=== PATIENT | female | born 1965 | race Caucasian/White ===

== ENCOUNTER 2017-02-17 16:53 | Emergency (ER) | payer OTHER ==
[~2017-02-17] VITALS: Ht 139.7 cm; Wt 65.9 kg
[2017-02-17] MEDS ORDERED: GLYB5 PO (17:46)
[2017-02-17] MEDS ORDERED: METF500T4 PO (17:46)
[2017-02-17 17:47] LABS: GLUCOSE,POINT OF CARE 171 MG/DL (70-110)
[2017-02-17 19:00] VITALS: BP 148/87
[2017-02-17] MEDS ORDERED: HYDROCODONE/ACETAMINOPHEN 5-325 MG TABLET PO ONE (19:00)
[2017-02-17] MEDS ORDERED: CefTRIAXone SODIUM 1 GM/VIAL IM ONE (19:00)
[2017-02-17] MEDS ORDERED: LIDOCAINE HCL/PF 1% 2 ML VIAL IM ONE (19:00)
== END 2017-02-17 19:06 | disposition home or self-care (01) ==
LOC: EMS 16:55
DX: L03.311 Cellulitis of abdominal wall (principal); L02.211 Cutaneous abscess of abdominal wall; E11.9 Type 2 diabetes mellitus without complications; I10 Essential (primary) hypertension
CPT/HCPCS: 82962; 96372; 99283; J0696; J3490

== ENCOUNTER 2020-10-05 01:03 | Emergency (ER) | payer OTHER ==
[~2020-10-05] VITALS: Ht 139.7 cm; Wt 6.5 kg
[~2020-10-05 01:03] MED LIST: GLYB5TAB10 PO; METF-960 PO
[2020-10-05] MEDS ORDERED: DiphenhydrAMINE HCL 25 MG CAPSULE PO ONE (02:15)
[2020-10-05] MEDS ORDERED: DiphenhydrAMINE HCL 50 MG/ML VIAL IM ONE (02:30)
[2020-10-05] MEDS ORDERED: FAMOTIDINE 20 MG TABLET PO ONE (02:30)
[2020-10-05] MEDS ORDERED: EPINEPHrine 1:1,000 [1 MG/ML] AMP IM ONE (02:30)
[2020-10-05 04:41] LABS: GLUCOSE,POINT OF CARE 331 MG/DL (70-110)
[2020-10-05 05:15] VITALS: BP 122/74
== END 2020-10-05 05:20 | disposition home or self-care (01) ==
LOC: EMS 01:03
DX: L50.9 Urticaria, unspecified (principal); I25.10 Atherosclerotic heart disease of native coronary artery without angina pectoris; E11.9 Type 2 diabetes mellitus without complications; I10 Essential (primary) hypertension; Z79.84 Long term (current) use of oral hypoglycemic drugs
CPT/HCPCS: 82962; 96372; 99284; J0171; J1200; 82948

== ENCOUNTER 2022-09-11 09:03 | Inpatient (IN) | payer OTHER ==
[~2022-09-11] VITALS: Ht 139.7 cm; Wt 59.1 kg
[~2022-09-11 09:03] MED LIST changes: +GLYB-145 PO; -GLYB5TAB10 PO; +METF-1211 PO; -METF-960 PO
[2022-09-11 10:18] LABS: BASOPHILS % (AUTO) 1.1 % (0.0-2.0); EOSINOPHILS % (AUTO) 2.4 % (1.0-6.0); HEMOGLOBIN 11.3 g/dL (12.0-16.0); LYMPHOCYTES % (AUTO) 17.5 % (22.0-44.0); MEAN CORPUSCULAR HEMOGLOBIN 29.6 pg (26.0-34.0); MEAN CORPUSCULAR HGB CONC 34.2 G/dL (31.0-37.0); MEAN CORPUSCULAR VOLUME 87 fL (80-100); MONOCYTES # (AUTO) 1.2 K/uL (0.1-1.0); MONOCYTES % (AUTO) 10.4 % (2.0-9.0); NEUTROPHILS # (AUTO) 7.8 K/uL (1.8-7.7); NEUTROPHILS % (AUTO) 68.6 % (40.0-70.0); PLATELET COUNT (AUTO) 398 K/uL (150-450); RED BLOOD CELL COUNT(AUTO) 3.81 MIL/uL (4.00-5.20); RED CELL DISTRIBUTION WIDTH 12.5 % (11.5-14.5)
[2022-09-11 10:31] LABS: CALCIUM, TOTAL 9.4 mg/dL (8.8-10.5); CREATININE 1.79 mg/dL (0.60-1.30); POTASSIUM 4.6 mmol/L (3.5-5.1)
[2022-09-11 10:36] LABS: ALBUMIN 2.9 g/dL (3.4-5.0); BILIRUBIN,TOTAL 0.4 mg/dL (0.1-1.0); TOTAL PROTEIN, SERUM 7.4 g/dL (6.4-8.2)
[2022-09-11] MEDS ORDERED: DEXTROSE 50%-WATER 25 GM/50 ML SYRINGE IVP PRN (16:15)
[2022-09-11] MEDS ORDERED: MORPHINE SULFATE 2 MG/ML SYRINGE IVP PRN (16:15)
[2022-09-11] MEDS ORDERED: SODIUM CHLORIDE 0.9% 1,000 ML IV ONE (16:15)
[2022-09-11] MEDS ORDERED: ONDANSETRON HCL 4 MG/2 ML VIAL IVP PRN (16:15)
[2022-09-11] MEDS ORDERED: ZOLPIDEM TARTRATE 5 MG TABLET PO PRN (16:15)
[2022-09-11 16:32] LABS: COVID AG,FIA SOURCE NASAL SWAB
[2022-09-11] MEDS ORDERED: LISI-894 PO (16:36)
[2022-09-11] MEDS ORDERED: CARV6 PO (16:36)
[2022-09-11] MEDS ORDERED: FURO20 PO (16:36)
[2022-09-11] MEDS ORDERED: GLYB5TAB9 PO (16:36)
[2022-09-11 17:00] VITALS: BP 108/82
[2022-09-11] MEDS: OxyCODONE HCL/ACETAMINOPHEN 5-325 MG TABLET PO PRN (17:17)
[2022-09-11 17:40] LABS: APPEARANCE,URINE TURBID (CLEAR); BILIRUBIN,URINE NEGATIVE (NEGATIVE); GLUCOSE, URINE (UA) NEGATIVE (NEGATIVE); KETONES,URINE NEGATIVE (NEGATIVE); LEUKOCYTE ESTERASE ,URINE LARGE (NEGATIVE); NITRATE,URINE NEGATIVE (NEGATIVE); OCCULT BLOOD,URINE MODERATE (NEGATIVE); PROTEIN,URINE 100-200,SEE CONFIRM mg/dL (NEGATIVE); UROBILINOGEN,URINE <=1.0 mg/dL (<=1.0)
[2022-09-11 17:48] LABS: SULFOSALICYLIC ACID,URINE 2+ (Negative)
[2022-09-11 17:49] LABS: BACTERIA,URINE Many /HPF (None Seen); WBC,URINE Full Field /HPF (0-5)
[2022-09-11] MEDS: INSULIN LISPRO 100 UNITS/ML SQ PRN ×2 (18:00→20:22)
[2022-09-11 20:06] LABS: GLUCOMETER DEV NAME(LOC) 5S.1B; GLUCOSE,POINT OF CARE 160 MG/DL (70-110)
[2022-09-11] MEDS: DOCUSATE SODIUM 100 MG CAPSULE PO SCH (20:19)
[2022-09-11 20:27] VITALS: BP 123/57
[2022-09-11 20:31] LABS: GLUCOMETER DEV NAME(LOC) 5S.1B; GLUCOSE,POINT OF CARE 215 MG/DL (70-110)
[2022-09-12] VITALS (7 sets, daily range): BP systolic 95–129; BP diastolic 46–68
[2022-09-12] MEDS: OxyCODONE HCL/ACETAMINOPHEN 5-325 MG TABLET PO PRN ×2 (00:14→17:11)
[2022-09-12] MEDS: HEPARIN SODIUM,PORCINE 5,000 UNITS/ML VIAL SQ SCH ×3 (00:14→17:10)
[2022-09-12] MEDS: INSULIN LISPRO 100 UNITS/ML SQ PRN ×4 (06:08→20:36)
[2022-09-12 06:56] LABS: GLUCOMETER DEV NAME(LOC) 5S.1B; GLUCOSE,POINT OF CARE 196 MG/DL (70-110)
[2022-09-12] MEDS: FAMOTIDINE 20 MG TABLET PO SCH (08:14)
[2022-09-12] MEDS: DOCUSATE SODIUM 100 MG CAPSULE PO SCH ×2 (08:14→20:32)
[2022-09-12] MEDS: ACETAMINOPHEN 325 MG TABLET PO PRN ×2 (08:29→22:29)
[2022-09-12] MEDS ORDERED: SODIUM CHLORIDE 0.9% 250 ML IV ONE (10:51)
[2022-09-12] MEDS: CefTRIAXone 1 GM/DEXTROSE 50 ML IV SCH (10:52)
[2022-09-12 17:27] LABS: GLUCOMETER DEV NAME(LOC) 5N.2C; GLUCOSE,POINT OF CARE 216 MG/DL (70-110)
[2022-09-12 20:31] LABS: GLUCOMETER DEV NAME(LOC) 5S.1B; GLUCOSE,POINT OF CARE 187 MG/DL (70-110)
[2022-09-13 00:07] LABS: GLUCOMETER DEV NAME(LOC) 5N.2C; GLUCOSE,POINT OF CARE 112 MG/DL (70-110)
[2022-09-13] MEDS: HEPARIN SODIUM,PORCINE 5,000 UNITS/ML VIAL SQ SCH ×2 (00:37→08:57)
[2022-09-13 01:15] VITALS: BP 111/59
[2022-09-13 04:40] VITALS: BP 126/62
[2022-09-13] MEDS: ACETAMINOPHEN 325 MG TABLET PO PRN (04:47)
[2022-09-13 06:03] LABS: BASOPHILS % (AUTO) 0.6 % (0.0-2.0); EOSINOPHILS % (AUTO) 1.9 % (1.0-6.0); HEMATOCRIT 33.2 % (36-46); HEMOGLOBIN 11.2 g/dL (12.0-16.0); LYMPHOCYTES % (AUTO) 16.9 % (22.0-44.0); MEAN CORPUSCULAR HEMOGLOBIN 29.5 pg (26.0-34.0); MEAN CORPUSCULAR HGB CONC 33.7 G/dL (31.0-37.0); MEAN CORPUSCULAR VOLUME 87 fL (80-100); MONOCYTES # (AUTO) 1.2 K/uL (0.1-1.0); MONOCYTES % (AUTO) 9.7 % (2.0-9.0); NEUTROPHILS # (AUTO) 8.4 K/uL (1.8-7.7); NEUTROPHILS % (AUTO) 70.9 % (40.0-70.0); PLATELET COUNT (AUTO) 392 K/uL (150-450); RED CELL DISTRIBUTION WIDTH 12.7 % (11.5-14.5)
[2022-09-13 06:16] LABS: CALCIUM, TOTAL 9.3 mg/dL (8.8-10.5); CREATININE 1.79 mg/dL (0.60-1.30); POTASSIUM 4.4 mmol/L (3.5-5.1)
[2022-09-13] MEDS: INSULIN LISPRO 100 UNITS/ML SQ PRN ×2 (06:29→12:05)
[2022-09-13] MEDS ORDERED: LEVO250T75 PO (07:42)
[2022-09-13 08:35] VITALS: BP 129/68
[2022-09-13] MEDS: DOCUSATE SODIUM 100 MG CAPSULE PO SCH (08:57)
[2022-09-13] MEDS: FAMOTIDINE 20 MG TABLET PO SCH (08:57)
[2022-09-13] MEDS: CefTRIAXone 1 GM/DEXTROSE 50 ML IV SCH (10:56)
[2022-09-13 11:56] VITALS: BP 133/66
[2022-09-13 19:46] LABS: GLUCOMETER DEV NAME(LOC) 5N.1C; GLUCOSE,POINT OF CARE 244 MG/DL (70-110)
[2022-09-13 20:31] LABS: GLUCOMETER DEV NAME(LOC) 5S.1B; GLUCOSE,POINT OF CARE 299 MG/DL (70-110)
== END 2022-09-13 13:05 | disposition home or self-care (01) | DRG 463 ==
LOC: EMS 09:03 → 5S 14:57
PROVIDERS: ADMIT Internal Medicine; ATTEND Internal Medicine
DX: N12 Tubulo-interstitial nephritis, not specified as acute or chronic (principal); N17.9 Acute kidney failure, unspecified; N20.0 Calculus of kidney; E11.9 Type 2 diabetes mellitus without complications; I10 Essential (primary) hypertension; Z20.822 Contact with and (suspected) exposure to COVID-19; I25.10 Atherosclerotic heart disease of native coronary artery without angina pectoris; Z87.442 Personal history of urinary calculi
CPT/HCPCS: 71045; 74176; 80048; 80053; 81001; 81002; 82962; 83690; 84484; 85025; 87086; 87186; 93005; 93306; 99285; G0378; J0696; J1644; J2405; J7030; J7050; 36415-L1; 36415-TC